=== PATIENT | male | born 1985 | race African-American/Black ===

== ENCOUNTER 2020-11-14 10:00 | Emergency (ER) | payer MEDICAID ==
[~2020-11-14] VITALS: Ht 175.3 cm; Wt 110.0 kg
[2020-11-14] MEDS ORDERED: MORPHINE SULFATE 4 MG/ML CPJ (NOT FOR IM USE) IV STA (10:29)
[2020-11-14] MEDS ORDERED: CLINDAMYCIN 600 MG in DEXTROSE 5% WATER 50 ML IV ONE (10:30)
[2020-11-14 10:42] LABS: BASOPHILS % 0.8 % (0.0-2.0); EOSINOPHILS % 2.2 % (0.0-5.0); HEMATOCRIT. 39.3 % (42.0-52.0); HEMOGLOBIN. 12.7 g/dL (14.0-18.0); LYMPHOCYTES % 17.4 % (20.0-50.0); MEAN CORPUSCULAR HEMOGLOBIN 27.6 pg (28.0-32.0); MEAN CORPUSCULAR VOLUME 85.5 fL (80.0-94.0); MEAN PLATELET VOLUME 8.4 fl (7.4-10.4); MONOCYTES % 5.5 % (2.0-8.0); NEUTROPHILS % 74.1 % (40.0-76.0); PLATELET 309 x1000/uL (130-400)
[2020-11-14] MEDS ORDERED: CLINDAMYCIN 600MG PREMIX 50 ML IV NR (10:45)
[2020-11-14 10:48] LABS: CHLORIDE 106 mEq/L (98-107)
[2020-11-14 10:55] LABS: *AMPHETAMINES SCREEN URINE PRESUMTIVE POSITIVE (NEGATIVE); *BARBITURATES SCREEN URINE NEGATIVE (NEGATIVE); *BENZODIAZEPINES SCREEN URINE NEGATIVE (NEGATIVE); *COCAINE SCREEN URINE PRESUMTIVE POSITIVE (NEGATIVE)
[2020-11-14 10:56] LABS: CANNABINOID URINE SCREEN NEGATIVE (NEGATIVE); METHADONE URINE SCREEN NEGATIVE (NEGATIVE); OPIATES URINE SCREEN NEGATIVE (NEGATIVE); PHENCYCLIDINE URINE SCREEN NEGATIVE (NEGATIVE)
[2020-11-14] MEDS ORDERED: CLIN300C12 PO (11:13)
[2020-11-14] MEDS ORDERED: TOPUD PO (11:16)
[2020-11-14] MEDS ORDERED: DIPH25TA62 PO (11:16)
[2020-11-14 13:00] VITALS: BP 179/98
== END 2020-11-14 13:01 | disposition home or self-care (01) ==
LOC: ER 10:00
DX: L03.116 Cellulitis of left lower limb (principal); L03.115 Cellulitis of right lower limb; F17.200 Nicotine dependence, unspecified, uncomplicated; I49.9 Cardiac arrhythmia, unspecified
CPT/HCPCS: 36415; 80053; 80305; 85025; 93005; 96365; 96375; 99284; J2270; J3490; J7060

== ENCOUNTER 2024-02-19 07:35 | Emergency (ER) | payer MEDICAID ==
[~2024-02-19] VITALS: Ht 167.6 cm; Wt 113.4 kg
[~2024-02-19 07:35] MED LIST: CLIN-194 PO; DIPH25TA62 PO; TOPUD PO
[2024-02-19 07:40] VITALS: O2SAT 97
[2024-02-19] MEDS: IBUPROFEN 600MG TABLET PO ONE (08:31)
[2024-02-19] MEDS: CYCLOBENZAPRINE 10MG TABLET PO ONE (08:31)
[2024-02-19] MEDS ORDERED: IBUP-2029 PO (09:27)
[2024-02-19] MEDS ORDERED: CYCL10TA21 PO (09:28)
[2024-02-19 09:54] VITALS: BP 155/90; PULSE 88; RESP 16; TEMP 98.3
== END 2024-02-19 10:01 | disposition home or self-care (01) ==
LOC: ER 07:35
DX: S29.012A Strain of muscle and tendon of back wall of thorax, initial encounter (principal); V69.9XXA Occupant (driver) (passenger) of heavy transport vehicle injured in unspecified traffic accident, initial encounter; Y93.89 Activity, other specified; Y92.89 Other specified places as the place of occurrence of the external cause; Y99.8 Other external cause status
CPT/HCPCS: 73502; 99283